=== PATIENT | female | born 1990 | race Hispanic/Latino ===

== ENCOUNTER 2019-07-20 16:40 | Inpatient (IN) | payer MEDICAID, OTHER ==
[~2019-07-20] VITALS: Ht 165.1 cm; Wt 58.1 kg
[~2019-07-20 16:40] MED LIST: MULT-952 PO
[2019-07-20 18:28] LABS: APPEARANCE,URINE Clear (CLEAR); BILIRUBIN,URINE Negative (NEGATIVE); COLOR,URINE Yellow (YELLOW); GLUCOSE, URINE (UA) Negative (NEGATIVE); KETONES,URINE Negative (NEGATIVE); LEUKOCYTE ESTERASE ,URINE Moderate (NEGATIVE); NITRATE,URINE Negative (NEGATIVE); OCCULT BLOOD,URINE Small (NEGATIVE); PROTEIN,URINE Negative (NEGATIVE)
[2019-07-20 18:33] LABS: HCG,QUAL RESULT NEGATIVE (NEGATIVE)
[2019-07-20 18:39] LABS: BACTERIA,URINE Few /HPF (None Seen); WBC,URINE 26-50 /HPF (0-1)
[2019-07-20 18:40] LABS: MUCUS,URINE Few LPF (None Seen); SQUAMOUS EPITHELIAL CELL,UR Moderate /HPF (0-2)
[2019-07-20 20:16] LABS: BASOPHILS % (AUTO) 0.2 % (0.0-5.0); EOSINOPHILS % (AUTO) 0.7 % (0.0-8.0); HEMATOCRIT 40.2 % (36-48); LYMPHOCYTES % (AUTO) 17.5 % (21.0-51.0); MEAN CORPUSCULAR HEMOGLOBIN 25.2 pg (27.0-33.0); MEAN CORPUSCULAR HGB CONC 31.8 g/dL (32.0-36.0); MEAN CORPUSCULAR VOLUME 79.1 fL (79-99); NEUTROPHILS % (AUTO) 76.2 % (40.0-77.0); PLATELET COUNT (AUTO) 218 K/uL (130-400); RED BLOOD CELL COUNT(AUTO) 5.08 MIL/uL (4.00-5.50); RED CELL DISTRIBUTION WIDTH 18.3 % (11.0-15.5); WHITE BLOOD COUNT (AUTO) 10.7 K/uL (4.8-10.8)
[2019-07-20 20:29] LABS: CREATININE 0.7 mg/dL (0.5-1.5); POTASSIUM 3.6 mmol/L (3.5-5.1)
[2019-07-20 20:34] LABS: ALBUMIN 4.1 g/dL (3.5-5.0); BILIRUBIN,TOTAL 0.3 mg/dL (0.2-1.0); TOTAL PROTEIN, SERUM 8.2 g/dL (6.0-8.3)
[2019-07-20 21:01] LABS: PLATELET MORPHOLOGY LARGE PLTS PRESENT
[2019-07-20] MEDS ORDERED: CEFTRIAXONE SODIUM 1 GM ONE (21:38)
[2019-07-20] MEDS ORDERED: SODIUM CHLORIDE 0.9% 50 ML IV ONE (21:38)
[2019-07-20] MEDS ORDERED: LACTATED RINGERS 1000ML 1,000 ML IV SCH (21:41)
[2019-07-20] MEDS: CEFTRIAXONE SODIUM 1 GM IVP SCH (21:45)
[2019-07-20] MEDS ORDERED: LACTULOSE 20 GM/30 ML UDCUP PO SCH (22:00)
[2019-07-20] MEDS ORDERED: BISACODYL 5 MG TABLET.DR PO ONE (22:25)
[2019-07-21] MEDS ORDERED: LACTULOSE 20 GM/30 ML UDCUP ONE (00:09)
[2019-07-21] MEDS ORDERED: LACTATED RINGERS 1000ML 1,000 ML IV ONE (00:09)
--- NOTE | 2019-07-21 00:50 | NUR ---
PT. RECEIVED VIA WC FROM ER. NO DISTRESS NOTED. PT. ORIENTED TO CALL LIGHT AND SURROUNDINGS, VERBALIZED UNDERSTANDING.
[2019-07-21 01:00] VITALS: BP 118/86
[2019-07-21 03:56] VITALS: BP 104/69
[2019-07-21 04:50] LABS: BASOPHILS % (AUTO) 0.1 % (0.0-5.0); EOSINOPHILS % (AUTO) 0.9 % (0.0-8.0); HEMATOCRIT 38.6 % (36-48); LYMPHOCYTES % (AUTO) 20.1 % (21.0-51.0); MEAN CORPUSCULAR HGB CONC 31.3 g/dL (32.0-36.0); MEAN CORPUSCULAR VOLUME 79.8 fL (79-99); MONOCYTES % (AUTO) 6.6 % (3.0-13.0); NEUTROPHILS % (AUTO) 72.2 % (40.0-77.0); PLATELET COUNT (AUTO) 204 K/uL (130-400); RED BLOOD CELL COUNT(AUTO) 4.84 MIL/uL (4.00-5.50); RED CELL DISTRIBUTION WIDTH 17.9 % (11.0-15.5); WHITE BLOOD COUNT (AUTO) 7.5 K/uL (4.8-10.8)
[2019-07-21 05:24] LABS: ALBUMIN 3.8 g/dL (3.5-5.0); BILIRUBIN,TOTAL 0.4 mg/dL (0.2-1.0); CREATININE 0.7 mg/dL (0.5-1.5); POTASSIUM 3.7 mmol/L (3.5-5.1); TOTAL PROTEIN, SERUM 7.6 g/dL (6.0-8.3)
--- NOTE | 2019-07-21 08:00 | NUR ---
SOTO CRUZ FNP ROUNDING ON PATIENT AT THIS TIME. POC DISCUSSED. PATIENT VOICED UNDERSTANDING.
[2019-07-21 08:17] VITALS: BP 104/62
[2019-07-21] MEDS ORDERED: METOCLOPRAMIDE 10 MG/2 ML VIAL IVP SCH (09:00)
[2019-07-21] MEDS ORDERED: FAMOTIDINE/PF 20 MG/2 ML VIAL IV SCH (09:00)
[2019-07-21] MEDS: CEFTRIAXONE SODIUM 1 GM IVP SCH (09:41)
--- NOTE | 2019-07-21 11:30 | NUR ---
GUERA ROSARIO ROUNDING ON PATIENT. POC DISCUSSED. PATIENT MAY HAVE REGULAR DIET, IF PATIENT CAN TOLERATE DIET, CONSIDER CLEAR FROM SILHY STANDPOINT.
[2019-07-21 11:58] VITALS: BP 103/71
--- NOTE | 2019-07-21 13:48 | NUR ---
PATIENT REPORTS SHE IS ABLE TO TOLERATE DIET. NO PAIN OR NAUSEA REPORTED.
[2019-07-21 14:49] LABS: INR 1.01 (0.85-1.15); PARTIAL THROMBOPLASTIN TIME 29.7 SEC (26.3-35.5); PROTHROMBIN TIME 10.6 SEC (9.6-11.6)
--- NOTE | 2019-07-21 15:26 | NUR ---
DC PLAN VISITED WITH PATIENT. PATIENT LIVES WITH BOYFRIEND. INDEPENDENT ABLE TO PERFORM ADL'S. PATIENT HAS NO SERVICES OR DME'S. FEELS SAFE TO RETURN HOME. Addendum: 07/21/19 at 1528 by KARTHIKEYAN KING RN CM Amended: Links added.
[2019-07-21] MEDS ORDERED: CEPH-578 PO (15:35)
--- NOTE | 2019-07-21 15:35 | NUR ---
ANTHONY VALERA NP ROUNDING ON PATIENT. NEW ORDERS RECEIVED TO DISCHARGE PATIENT. POC DISCUSSED WITH PATIENT.
--- NOTE | 2019-07-21 16:15 | NUR ---
PATIENT LEFT UNIT VIA WHEELCHAIR WITH BELONGINGS IN HAND. PERSONAL VEHICLE USED FOR TRANSPORTATION. NO COMPLAINTS OR CONCERNS ADDRESSED FROM PATIENT ON DISCHARGE.
== END 2019-07-21 16:15 | disposition home or self-care (01) | DRG 394 ==
LOC: EDH 16:40 → EDHIP 16:41 → WSH 07-21 00:50
PROVIDERS: ADMIT Internal Medicine; ATTEND Internal Medicine
DX: K35.80 Unspecified acute appendicitis (principal); N39.0 Urinary tract infection, site not specified; K59.00 Constipation, unspecified; Z98.891 History of uterine scar from previous surgery
CPT/HCPCS: 36415; 74176; 80053; 81001; 81025; 85025; 85610; 85730; 87088; G0378; J0696; J2765; J3490; J7120

== ENCOUNTER 2020-09-24 22:24 | Emergency (ER) | payer OTHER ==
[~2020-09-24 22:24] MED LIST changes: +CEPH-578 PO
[2020-09-24 22:51] LABS: BASOPHILS % (AUTO) 0.3 % (0.0-5.0); EOSINOPHILS % (AUTO) 0.8 % (0.0-8.0); LYMPHOCYTES % (AUTO) 19.5 % (21.0-51.0); MEAN CORPUSCULAR HEMOGLOBIN 28.1 pg (27.0-33.0); MEAN CORPUSCULAR HGB CONC 32.8 g/dL (32.0-36.0); MEAN CORPUSCULAR VOLUME 85.8 fL (79-99); MONOCYTES % (AUTO) 5.1 % (3.0-13.0); PLATELET COUNT (AUTO) 206 K/uL (130-400); RED BLOOD CELL COUNT(AUTO) 4.66 MIL/uL (4.00-5.50); WHITE BLOOD COUNT (AUTO) 7.9 K/uL (4.8-10.8)
[2020-09-24 23:00] LABS: CREATININE 0.6 mg/dL (0.5-1.5); POTASSIUM 3.4 mmol/L (3.5-5.1)
[2020-09-24 23:05] LABS: ALBUMIN 4.4 g/dL (3.5-5.0); BILIRUBIN,TOTAL 0.3 mg/dL (0.2-1.0); TOTAL PROTEIN, SERUM 7.8 g/dL (6.0-8.3)
[2020-09-24] MEDS ORDERED: DiphenhydrAMINE HCL 50 MG/ML VIAL ONE (23:18)
[2020-09-24] MEDS ORDERED: PROCHLORPERAZINE EDISYLATE 10 MG/2 ML VIAL ONE (23:19)
[2020-09-24] MEDS ORDERED: KETOROLAC TROMETHAMINE 15MG/ML ONE (23:19)
[2020-09-24 23:22] LABS: APPEARANCE,URINE Clear (CLEAR); BILIRUBIN,URINE Negative (NEGATIVE); COLOR,URINE Yellow (YELLOW); GLUCOSE, URINE (UA) Negative (NEGATIVE); KETONES,URINE Trace mg/dL (NEGATIVE); LEUKOCYTE ESTERASE ,URINE Small (NEGATIVE); NITRATE,URINE Negative (NEGATIVE); OCCULT BLOOD,URINE Large (NEGATIVE); PROTEIN,URINE POS 1+ mg/dL (NEGATIVE)
[2020-09-24 23:35] LABS: HCG,QUAL RESULT NEGATIVE (NEGATIVE)
[2020-09-24 23:37] LABS: BACTERIA,URINE Few /HPF (None Seen); MUCUS,URINE Many LPF (None Seen); SQUAMOUS EPITHELIAL CELL,UR Few /HPF (0-2)
== END 2020-09-25 03:36 | disposition home or self-care (01) ==
LOC: EDH 22:24
DX: A09 Infectious gastroenteritis and colitis, unspecified (principal); E86.0 Dehydration; Z98.890 Other specified postprocedural states
CPT/HCPCS: 36415; 80053; 81001; 81025; 83690; 85025; 96361; 96374; 96375; 99284; J0780; J1200; J1885